=== PATIENT | female | born 1985 | race Caucasian/White ===

== ENCOUNTER 2016-06-01 19:50 | Emergency (ER) | payer OTHER ==
[~2016-06-01] VITALS: Ht 162.6 cm; Wt 80.0 kg
[2016-06-01 19:54] VITALS: BP 136/101; PULSE 84; RESP 16; O2SAT 100
--- NOTE | 2016-06-01 21:39 | ED.REPORT ---
HPI-General Illness Date of Service Jun 01, 2016 ED Provider: Quirino Henderson MD 31 year old female presents to the ER complaining of left ankle and knee pain for a year status post multiple left lower extremity traumas, worsening recently with swelling of the affected leg. She was seen at the [facility] and referred to the ER for DVT rule-out. She also reports decreased range of motion of the left knee, and intermittent numbness of her left hand. Patient denies chest pain, SOB, any history of blood clots or lupus, though she speculates that she has some autoimmune problems. She has a family history of multiple immune problems and primary relatives with DVT and clot. She recently moved to the area from [place]. Nursing Notes Stated Complaint: LEFT KNEE, ANKLE PAIN Chief Complaint: Extremity Trauma Nursing Notes Reviewed: Yes Allergies: Coded Allergies: latex (Verified Allergy, Mild, Rash, 06/01/16) Scheduled PRN Naproxen (Naprosyn) 500 Mg Tablet 500 MG PO BID PRN PRN For Pain General Time Seen by MD: 21:39 Chief Complaint Other (Left Knee and Ankle Pain) Hx Obtained From: Patient Arrived By: Walk-in Onset Occurred: More than a week ago... (approximately 1 year) Symptom Duration: Since onset Caused by: Blunt trauma Context: Occurred at: Home injury Location: : Ankle left: Knee left Quality: Painful Severity: Current: Moderate Severity: Maximum: Moderate Associated with: Denies: Chest pain, Shortness of breath Recent Healthcare: Recent doctor visit Past Medical History Past Medical History Broken pelvis Left knee trauma 9 months ago as of 06/01/2016 Horse kick to the left ankle 2016 Smoking History Unknown if Ever Smoker Ambulatory Status Independent Review of Systems Full Review of Systems Constitutional: Denies: Chills, Fever Respiratory: Denies: Non-productive cough, Shortness of breath Cardiovascular: Denies: Chest pain Musculoskeletal: Reports: Extremity pain (Left Lower), Joint pain (Left Knee and Ankle), Denies: Back pain, Lumbar pain, Neck pain, Thoracic pain Complete sys rev & neg: except as marked. Physical Exam Vital Signs Vital Signs Date Time Temp Pulse Resp B/P Pulse Ox O2 Delivery O2 Flow Rate FiO2 06/02/16 04:15 36.6 93 16 123/91 100 Room Air 06/01/16 23:56 90 16 132/98 100 Room Air 06/01/16 19:54 36.0 84 16 136/101 100 Room Air Initial VS: Reviewed General/Constitutional: Well-developed, Well-nourished Head / Eyes: Atraumatic, Normocephalic Neck: Supple, Non-tender, Full range of motion Abdomen / GI: Soft, Non-tender, No guarding, No rebound, No distention Skin: Warm, Dry, No cyanosis Neurologic: Alert, Oriented, Nonfocal Respiratory / Chest: Breath sounds NL, No respiratory distress, No rales, No rhonchi, No wheezing Cardiovascular: Heart rate NL, Regular rhythm, Heart sounds NL, Cap refill not delayed, Peripheral circulation NL Lower Extremity / Pelvis / MS: Inspection NL, Non-tender, No erythema, No deformity, Neurologic intact, Vascular intact Trace edema of the left lower extremity Interpretation & Diagnostics Lab Results Interpretation Result Diagram: 06/01/16224906/01/162249 Test 06/01/16 22:50 White Blood Count 10.0th/mm3 (3.8-10.1) Red Blood Count 4.60mil/mm3 (3.90-5.20) Hemoglobin 12.9g/dL (12.0-15.6) Hematocrit 38.8% (35.0-46.0) Mean Corpuscular Volume 84.3fL (81-100) Mean Corpuscular Hemoglobin 28.0pg (27.0-35.0) Mean Corpuscular Hemoglobin Concent 33.2% (32.0-37.0) Red Cell Distribution Width 13.2% (12.3-15.4) Platelet Count 363bil/L (150-400) Neutrophils (%) (Auto) 62.2% (40-74) Lymphocytes (%) (Auto) 29.5% (14-46) Monocytes (%) (Auto) 6.2% (4-12) Eosinophils (%) (Auto) 1.2% (0-5) Basophils (%) (Auto) 0.6% (0-3) Erythrocyte Sedimentation Rate 22mm/hr (0-32) Prothrombin Time 10.3sec (8.1-12.5) Prothromb Time International Ratio 0.96ratio Activated Partial Thromboplast Time 27.8sec (22.8-33.0) D-Dimer 1.90mg/L FEU (<0.50) Sodium Level 138mEq/L (134-144) Potassium Level 4.0mEq/L (3.5-5.2) Chloride Level 102mEq/L (97-108) Carbon Dioxide Level 23mmol/L (18-29) Blood Urea Nitrogen 16mg/dL (6-20) Creatinine 0.66mg/dL (0.57-1.00) Estimat Glomerular Filtration Rate 151mL/min (>59) Glucose Level 104mg/dL (60-99) Calcium Level 9.0mg/dL (8.5-10.1) Magnesium Level 1.8mg/dL (1.6-2.6) Total Bilirubin 0.2mg/dL (0.0-1.2) Aspartate Amino Transf (AST/SGOT) 13U/L (0-50) Alanine Aminotransferase (ALT/SGPT) 7U/L (0-32) Alkaline Phosphatase 36U/L (25-150) Troponin T 0.010ug/L (0.0-0.011) Pro-B-Type Natriuretic Peptide 39.31pg/mL (0-130) Total Protein 8.0g/dL (6.4-8.4) Albumin 4.0g/dL (3.4-5.0) ECG Interpretation ECG Interpretation: Sinus rhythm, rate 81 Time: 21:58 Interpreted by: ED physician X-Ray Chest Interpretation Chest Xray Interpretation: Negative. View: Portable, 1 view Interpretation / Wet Read by: Wet read ED physician X-Ray Interpretation Xray Interpretation: Normal x-ray of the left knee. X-Ray Ordered: Knee left Interpretation / Wet Read by: Wet read ED physician Xray Interpretation: Normal x-ray of the left ankle. X-Ray Ordered: Ankle left Interpretation / Wet Read by: Wet read ED physician CT Chest Interpretation CONCLUSION: No PE. Electronically signed by Salvador Hernandez MD Study type: CT pulm angiogram Interpretation / Wet Read by: Interpret - Radiologist US Focused Lower Ext Venous LEFT LOWER EXTREMITY ULTRASOUND IMPRESSION: No evidence of left lower extremity DVT. Minimally complex medial fossa Boucher's cyst. Electronically signed by Faby Inman MD Exam Performed by: [facility] health pract Exam Type: Diagnostic Clinical Category: Symptom-based Exam Interpreted by: Radiologist Re-Eval/Medical Decision Med Decision/Clinical Course 31-year-old female presents with mildly swollen left leg and tenderness in the medial distal thigh and ankle. X-rays are negative. Ultrasound shows a large ruptured Boucher's cyst. There is no evidence of DVT. Her d-dimer was elevated and her CT angiogram is negative. No evidence of clot, but her symptoms seem to be resulting from her Boucher's cyst. Referred to orthopedics for follow-up. Crutches, elevation, ibuprofen, and follow up with PCP and with ortho. Time of Eval: 00:30 Re-Evaluation/Progress Note: Patient is now accompanied by her who is at bedside. Discussed lab and imaging results and need for CT pulmonary angiogram. Counseled Regarding: Diagnosis, Lab results, Need for follow-up, When/why to return to ED Discharge & Departure Primary Impression: Boucher's cyst of knee Disposition: Home Discharge Condition All VS Reviewed: Yes Condition: Stable Patient Instructions: Boucher's Cyst (DC), Crutch Instructions (ED) Additional Instructions: Use the crutches for ambulation until symptoms are relieved. Follow-up with orthopedics. Your symptoms have been fairly persistent, and surgery may be helpful to eliminate your Boucher cyst. Rest and elevate whenever possible. Return to the ER with uncontrollable pain, chest pain, shortness of breath, or any other concerning symptoms. Referrals: NOPCP (PCP) Scribe Attestation Portions of this note were transcribed by Nahum Mayo. I, Dr. Henderson, personally performed the history, physical exam and medical decision-making; I reviewed and confirmed the accuracy of the information in the transcribed note. Signed by: Kenny Howe. 06/02/2016 - 03:53 Quirino Henderson MD Jun 01, 2016 21:39 NAHUM MAYO Jun 01, 2016 21:47
[2016-06-01 23:12] LABS: BASOPHILS % (AUTO) 0.6 % (0-3); EOSINOPHILS % (AUTO) 1.2 % (0-5); MONOCYTES % (AUTO) 6.2 % (4-12); Mean Corpuscular Volume 84.3 fL (81-100); NEUTROPHILS % (AUTO) 62.2 % (40-74); Platelet Count 363 bil/L (150-400)
[2016-06-01 23:32] LABS: ERYTHROCYTE SEDIMENTATION RATE 22 mm/hr (0-32)
[2016-06-01 23:39] LABS: D-Dimer 1.9 mg/L FEU (<0.50); INR 0.96 ratio
[2016-06-01 23:56] VITALS: BP 132/98; PULSE 90; RESP 16; O2SAT 100
[2016-06-02 00:08] LABS: Magnesium 1.8 mg/dL (1.6-2.6); TROPONIN T 0.01 ug/L (0.0-0.011)
[2016-06-02] MEDS ORDERED: NAPR500T PO (03:47)
[2016-06-02] MEDS ORDERED: Pantoprazole 4 mg/mL 10 mL Inj IVPUSH ONE (03:50)
[2016-06-02 04:15] VITALS: BP 123/91; PULSE 93; RESP 16; O2SAT 100
--- NOTE | 2016-06-02 06:16 | DRSVH ---
PROCEDURE: X-RAY LEFT KNEE, THREE VIEWS ([id number]) INDICATIONS: 31-year-old female with left knee injury. TECHNIQUE: 3 views of the knee were acquired. COMPARISON: None. FINDINGS: Bones: On the sunrise view, there is lateral patellar subluxation, as well as localized cortical reg ularity of the medial patellar pole. Distal femur and proximal tibia appear intact. Soft tissues: There is moderate joint effusion. No suspicious soft tissue calcifications. IMPRESSION: 1. Lateral patellar subluxation, along with findings suspicious for osteochondral injury of the medi al patellar pole, suggesting transient lateral patellar dislocation. Consider further evaluation wit h nonemergent non contrast left knee MRI when clinically feasible. 2. Moderate knee joint effusion. Dictated by: Chip Burns M.D. on 06/02/2016 at 6:13 Approved by: Chip Burns M.D. on 06/02/2016 at 6:15
--- NOTE | 2016-06-02 06:18 | DRSVH ---
PROCEDURE: X-RAY CHEST ONE VIEW, PORTABLE ([id number]) INDICATIONS: 31-year-old female with chest pain after horse kicked her. TECHNIQUE: One view of the chest was acquired. COMPARISON: None. FINDINGS: Surgical changes and devices: None. Lungs and pleura: No pleural effusions or pneumothorax. Lungs are clear. Mediastinum: Mediastinal contours appear normal. Heart size is normal. Bones and chest wall: No suspicious bony lesions. Overlying soft tissues appear unremarkable. IMPRESSION: No acute cardiopulmonary disease. Dictated by: Chip Burns M.D. on 06/02/2016 at 6:17 Approved by: Chip Burns M.D. on 06/02/2016 at 6:17
--- NOTE | 2016-06-02 06:18 | DRSVH ---
PROCEDURE: X-RAY LEFT ANKLE, MINIMUM THREE VIEWS ([id number]) INDICATIONS: 31-year-old female with left ankle pain after injury. TECHNIQUE: 3 views of the ankle were acquired. COMPARISON: None. FINDINGS: Bones: No fractures or dislocations. Ankle mortise is normally aligned. No suspicious bony lesions . Soft tissues: No tibiotalar joint effusion. Achilles tendon appears normal. IMPRESSION: No acute bony injuries of the left ankle. Dictated by: Chip Burns M.D. on 06/02/2016 at 6:15 Approved by: Chip Burns M.D. on 06/02/2016 at 6:16
--- NOTE | 2016-06-02 07:13 | DRSVH ---
PROCEDURE: US VEINOUS LEG DUPLEX UNILATERAL, LEFT INDICATIONS: 31-year-old female with left lower extremity swelling. TECHNIQUE: Real-time imaging, as well as color and pulse Doppler interrogation, were performed of the lower extr emity deep veins from the inguinal ligament to the popliteal fossa. COMPARISON: None. FINDINGS: Preliminary interpretation rendered by [facility] services. The deep veins are normally compressible, and free of intraluminal thrombus. Color and pulse Doppler demonstrate normal phasic intraluminal flow. There is normal augmentation response to distal compre ssion maneuver. Moderate size Boucher's cyst is noted, measuring 5.4 x 1.4 x 1.5 cm. IMPRESSION: No sonographic evidence for left lower extremity deep venous thrombosis. Moderate Boucher's cyst measu res up to 5.4 cm. No significant discrepancy with preliminary [facility] report. Dictated by: Chip Burns M.D. on 06/02/2016 at 7:10 Approved by: Chip Burns M.D. on 06/02/2016 at 7:12
--- NOTE | 2016-06-02 11:06 | DRSVH ---
PROCEDURE: CT ANGIO CHEST PULMONARY EMBOLISM ([id number]) INDICATIONS: 31-year-old female with elevated D-dimer, and family history of pulmonary embolism. TECHNIQUE: After the administration of intravenous contrast, 2 mm thick sections acquired from the pulmonary api tony to the posterior costophrenic angles. 3-dimensional maximum intensity projection (MIP) coronal a nd sagittal reformats were then acquired through the thorax. For radiation dose reduction, the follo wing was used: automated exposure control, adjustment of mA and/or kV according to patient size. COMPARISON: None. FINDINGS: Preliminary interpretation rendered by [facility] services. Image quality: Excellent. Pulmonary arteries: Pulmonary arteries are normal in size, and demonstrate no intraluminal filling d efects to suggest central pulmonary embolism. Lungs and pleura: No acute airspace opacities. 3 anterior right middle lobe nodules are present, me asuring up to 5 mm. No pleural effusions or pneumothorax. Central and peripheral airways are patent . Mediastinum: Heart size is normal, without pericardial effusion. No mediastinal or hilar adenopathy . Thoracic aorta is normal in caliber and enhancement. Esophagus is normal in caliber, without hiat al hernia. Bones and chest wall: No suspicious bony lesions. Ribs and thoracic spine appear intact throughout. Thyroid gland is normal in size . No axillary or supraclavicular adenopathy. Abdomen: Visualized upper abdominal solid organs appear normal in the early arterial phase of enhanc ement. IMPRESSION: 1. No evidence for central pulmonary embolism. 2. 3 clustered anterior right middle lobe nodules measure up to 5 mm, most likely postinflammatory r esidua of doubtful clinical significance. No significant discrepancy with preliminary [facility] report. Dictated by: Chip Burns M.D. on 06/02/2016 at 10:58 Approved by: Chip Burns M.D. on 06/02/2016 at 11:04
== END 2016-06-02 04:16 | disposition home or self-care (01) ==
LOC: SED 19:50
DX: M71.22 Synovial cyst of popliteal space [Baker], left knee (principal); Z87.828 Personal history of other (healed) physical injury and trauma
CPT/HCPCS: 36415; 71010; 71275; 73562; 73610; 80053; 83735; 83880; 84484; 85025; 85378; 85610; 85651; 85730; 86038; 86430; 93005; 93970; 96374; 96375; 99285; J1885; Q9967